=== PATIENT | male | born 1985 | race Caucasian/White ===

== ENCOUNTER 2016-12-30 17:39 | Emergency (ER) | payer OTHER ==
[2016-12-30 20:08] LABS: HEMOGLOBIN 16.4 gm/dl (14.0-17.5); RED BLOOD COUNT 5.09 M/UL (4.20-5.50); WHITE BLOOD COUNT 7.8 K/UL (4.5-11.0)
[2016-12-30 21:10] LABS: BUN/CREATININE RATIO 8 (0-10)
== END 2016-12-30 23:05 | disposition home or self-care (01) ==
LOC: ER1 17:39
PROVIDERS: Specialist/Technologist Athletic Trainer
DX: R55 Syncope and collapse (principal); D72.821 Monocytosis (symptomatic); B34.9 Viral infection, unspecified; I10 Essential (primary) hypertension; J45.909 Unspecified asthma, uncomplicated; Z79.899 Other long term (current) drug therapy
CPT/HCPCS: 36415; 70450; 71010; 80053; 82550; 82553; 83874; 84484; 85025; 93005; 94664; 96361; 96374; 99284; J2405; J7030

== ENCOUNTER 2021-06-12 11:20 | Emergency (ER) | payer OTHER ==
[~2021-06-12 11:20] MED LIST: CEFDINIR300 MG PO; INDERAL LA60 MG PO; LEVAQUIN750 MG PO; LEXAPRO20 MG PO; MEDROL DOSEPAK 24 MG PO; NORVASC5 MG PO; PREDNISONE20 MG PO; PROTONIX40 MG PO; SINGULAIR10 MG PO; SYMBICORT 80-10.2 GM INH; VENTOLIN HFA 66.7 GM INH; VENTOLIN/PROVE0.5 ML INH
[2021-06-12] MEDS ORDERED: NAPROSYN500 MG PO (12:41)
== END 2021-06-12 16:29 | disposition home or self-care (01) ==
LOC: ER1 11:20
DX: M79.632 Pain in left forearm (principal); M25.532 Pain in left wrist; W22.8XXA Striking against or struck by other objects, initial encounter
CPT/HCPCS: 29125; 73090; 73130; 99283

== ENCOUNTER → 2021-10-24 | Outpatient (CLI) | payer SELFPAY ==
[~2021-10-24] MED LIST changes: +NAPROSYN500 MG PO
== END ==
LOC: HEART 5 13:59
DX: J45.909 Unspecified asthma, uncomplicated (principal)
CPT/HCPCS: 94060; 94729

== ENCOUNTER 2021-10-26 18:23 | Emergency (ER) | payer SELFPAY ==
[2021-10-26 19:49] LABS: RED BLOOD COUNT 5.23 M/UL (4.20-5.50); WHITE BLOOD COUNT 8.3 K/UL (4.5-11.0)
[2021-10-26 20:19] LABS: BUN/CREATININE RATIO 12 (0-10)
== END 2021-10-26 21:55 | disposition home or self-care (01) ==
LOC: ER1 18:23
PROVIDERS: Preventive Medicine Occupational Medicine
DX: U07.1 COVID-19 (principal); J45.909 Unspecified asthma, uncomplicated
CPT/HCPCS: 71045; 80048; 85025; 99283; U0002

== ENCOUNTER 2021-11-19 14:09 | Emergency (ER) | payer OTHER ==
[2021-11-19] MEDS ORDERED: PREDNISONE20 MG PO (20:31)
[2021-11-19] MEDS ORDERED: ZITHROMAX250 MG PO (20:31)
== END 2021-11-19 20:48 | disposition home or self-care (01) ==
LOC: ER1 14:09
DX: J44.1 Chronic obstructive pulmonary disease with (acute) exacerbation (principal); I10 Essential (primary) hypertension; F17.210 Nicotine dependence, cigarettes, uncomplicated; Z86.16 Personal history of COVID-19
CPT/HCPCS: 71045; 99283

== ENCOUNTER → 2021-11-28 | Outpatient (CLI) | payer OTHER ==
[~2021-11-28] MED LIST changes: +ZITHROMAX250 MG PO
== END ==
LOC: EXRD 13:54
DX: J44.9 Chronic obstructive pulmonary disease, unspecified (principal)
CPT/HCPCS: 71046

== ENCOUNTER → 2022-01-21 | Outpatient (CLI) | payer OTHER ==
[~2022-01-21] MED LIST changes: +TORADOL 10 MG T10 MG PO
== END ==
LOC: KOH-I 11:26
DX: M79.675 Pain in left toe(s) (principal); M79.672 Pain in left foot
CPT/HCPCS: 73630